=== PATIENT | male | born 1970 ===

== ENCOUNTER 2017-04-08 12:11 | Observation (INO) | payer BC ==
--- NOTE | 2017-04-08 12:26 | C.PDOC ---
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 Patient states the symptoms started while being a passenger in a car, states '"like things moving". Patient reports of associated nausea and slurred speech. States the slurred speech has now resolved "but still feel dizzy". Patient reports the symptoms worsen with movement. Patient states "Im under a lot of stress". Denies recent URI, allergies, chest pain, SOB or vomiting. 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 SUDDEN ONSET WHILE PASSENGER IN CAR. "LIKE THINGS MOVING" +ASSOC NAUSEA. SLURRED SPEECH. SLURRED SPEECH NOW RESOLVED "BUT STILL FEEL DIZZY". SX WORSE W MOVEMENT. DENIES RECENT URI, ALLERGIES. "IM UNDER ALOT OF STRESS". NO CP, SOB. EXAM MILD DIST NONTOXIC HEENT NO NYSTAGMUS NEURO SEE NIH REMAINDER NEG Time Seen by Provider: 04/08/17 12:19 History Per: Patient History/Exam Limitations: no limitations Onset/Duration Of Symptoms: Sudden Onset Past Medical History Reviewed: Historical Data, Nursing Documentation, Vital Signs Vital Signs: Last Vital Signs Temp 97.3 F L 04/08/17 12:24 Pulse 108 H 04/08/17 12:24 Resp 24 04/08/17 12:24 BP 129/80 04/08/17 12:24 Pulse Ox 98 04/08/17 12:24 Family History: States: No Known Family Hx Review Of Systems Except As Marked, All Systems Reviewed And Found Negative. Constitutional: Positive for: Other ((+) Slurred Speech) Cardiovascular: Negative for: Chest Pain Respiratory: Negative for: Shortness of Breath Gastrointestinal: Positive for: Nausea Neurological: Positive for: Dizziness Physical Exam - Physical Exam Appears: Non-toxic, In Acute Distress (Mild) Skin: Warm, Dry, No Rash Head: Atraumatic, Normacephalic Eye(s): bilateral: Normal Inspection, PERRL, EOMI, Other (No nystagmus) Oral Mucosa: Moist Neck: Normal, Normal ROM, Supple Chest: Symmetrical, No Tenderness Cardiovascular: Rhythm Regular, No Murmur Respiratory: Normal Breath Sounds, No Rales, No Rhonchi, No Wheezing Extremity: Normal ROM, No Swelling Neurological/Psych: Other (See NIH.) ED Course And Treatment - Laboratory Results Result Diagrams: 04/08/17 12:51 04/08/17 12:51 ECG: Interpreted By Me ECG Rhythm: Sinus Tachycardia, R BBB ECG Interpretation: Abnormal Rate From EC - CT Scan/US CT - Head Other Rad Studies (CT/US): Read By Radiologist, Radiology Report Reviewed CT/US Interpretation: PROCEDURE: CT HEAD WITHOUT CONTRAST. HISTORY: Code Stroke. COMPARISON: None available. TECHNIQUE: Axial computed tomography images were obtained through the head/brain without intravenous contrast. Radiation dose: Total exam DLP = 930.75 mGy-cm. This CT exam was performed using one or more of the following dose reduction techniques: Automated exposure control, adjustment of the mA and/or kV according to patient size, and/ or use of iterative reconstruction technique. FINDINGS: HEMORRHAGE: No intracranial hemorrhage. BRAIN: No mass effect or edema. No atrophy or chronic microvascular ischemic changes. VENTRICLES: Unremarkable. No hydrocephalus. CALVARIUM: Unremarkable. PARANASAL SINUSES: Unremarkable as visualized. No significant inflammatory changes. MASTOID AIR CELLS: Unremarkable as visualized. No inflammatory changes. OTHER FINDINGS: None. IMPRESSION: No evidence of acute intracranial hemorrhage intracranial collection territorial infarct mass effect or midline shift. NIHSS Stroke Scale - Date/Time Evaluation Performed Date Performed: 04/08/17 Time Performed: 12:24 When Was NIHSS Performed: Baseline - How Severe is the Stoke Level of Consciousness: 0=Alert LOC to Questions: 0=Both comments correct LOC to commands: 0=Obeys both correctly Best Gaze: 0=Normal Visual: 0=No visual loss Facial: 0=Normal Motor Arm - Left: 0=No drift Motor Arm - Right: 0=No drift Motor Leg - Left: 0=No drift Motor Leg - Right: 0=No drift Limb Ataxia: 0=Absent Sensory: 0=Normal Best Language: 0=No aphasia Dysarthia: 0=Normal articulation Extinction & Inattention (Neglect): 0=Normal, no object Score: 0 Severity Of Stroke: 0= No Stroke NIHSS Stroke Scale 2 - Date/Time Evaluation Performed Date Performed: 04/08/17 Time Performed: 13:05 When Was NIHSS Performed: Code Stroke Re-evaluation - How Severe is the Stroke Level of Consciousness: 0=Alert LOC to Questions: 0=Both comments correct LOC to commands: 0=Obeys both correctly Best Gaze: 0=Normal Visual: 0=No visual loss Facial: 0=Normal Motor Arm - Left: 0=No drift Motor Arm - Right: 0=No drift Motor Leg - Left: 0=No drift Motor Leg - Right: 0=No drift Limb Ataxia: 0=Absent Sensory: 0=Normal Best Language: 0=No aphasia Dysarthia: 0=Normal articulation Extinction & Inattention (Neglect): 0=Normal, no object Score: 0 Progress - Re-Evaluation Re-evaluation Note: 04/08/17 12:23 CODE STROKE ACTIVATED 04/08/17 14:03 APPEARS COMFORTABLE NAD. NEURO UN[facility] PRIOR. D/W DR Jocelyn GILLESPIE MED CHIEF SCIENCE OFFICER WILL ADMIT. CONSULT DR ABREU - Data Reviewed Data Reviewed: Lab, Diagnostic imaging, EKG, Old records - Critical Care Citical Care: Excluding Proc Time Critical Care Time: 120 minutes rTPA Inclusion/Exclusion - Refusal of Treatment Patient Refused Treatment: No - Inclusion Criteria for Altepase Patient is 18 years or Older: Yes The Clinical Diagnosis of Ischemic Stroke That is Causing a Potentially Disabling Neurological Deficit: No Time of Onset is Well Established to be Less Than 270 Minute Before Treatment Would Begin: Yes Risk/Benefit Discussed With Patient/Family Member Present: Yes - Exclusion Criteria for Altepase Uncontrolled Hypertension at Time of Treatment (Systolic BP above 185 or Diastolic BP above 110 mmHg): No Active Internal Bleeding: No Known Bleeding Diathesis Including but Not Limited to: Platelets Below 100,000/ mm,PTT Above 40 sec After Heparin Use, Current Use of Oral Anitcoagulant With INR Greater Than 1.7 or PT Greater Than 15 secs: No Evidence of an Intracranial Hemorrhage: No Evidence of Major Acute Infarct With Signs Greater Than 1/3 MCA Territory: No Suspicion of Subarachnoid Hemorrhage on Pretreatment Evaluation Even if CT Head Negative For Hemorrhage: No - Warning to TPA With Conditions Following Conditions Weighed Against Anticipated Benefit: Yes Condition: Stroke Serevity Too Mild, Rapid Improvement Medical Decision Making Medical Decision Making: PLAN: * CT - Head * CXR * EKG * Troponin * CBC * CMP Disposition Counseled Patient/Family Regarding: Studies Performed, Diagnosis - Disposition Disposition: HOSPITALIZED Disposition Time: 14:06 Condition: STABLE - POA Present On Arrival: None - Clinical Impression Clinical Impression: TIA (transient ischemic attack) - Scribe Statement The provider has reviewed the documentation as recorded by the Mela Mclean Provider Attestation: All medical record entries made by the Scribe were at my direction and personally dictated by me. I have reviewed the chart and agree that the record accurately reflects my personal performance of the history, physical exam, medical decision making, and the department course for this patient. I have also personally directed, reviewed, and agree with the discharge instructions and disposition. Decision To Admit - Pt Status Changed To: Hospital Disposition Of: Observation - . Bed Request Type: Telemetry Admitting Physician: Carissa Gillespie Patient Diagnosis: TIA (transient ischemic attack)
--- NOTE | 2017-04-08 12:45 | CT ---
PROCEDURE: CT HEAD WITHOUT CONTRAST. HISTORY: Code Stroke COMPARISON: None available. TECHNIQUE: Axial computed tomography images were obtained through the head/brain without intravenous contrast. Radiation dose: Total exam DLP = 930.75 mGy-cm. This CT exam was performed using one or more of the following dose reduction techniques: Automated exposure control, adjustment of the mA and/or kV according to patient size, and/or use of iterative reconstruction technique. FINDINGS: HEMORRHAGE: No intracranial hemorrhage. BRAIN: No mass effect or edema. No atrophy or chronic microvascular ischemic changes. VENTRICLES: Unremarkable. No hydrocephalus. CALVARIUM: Unremarkable. PARANASAL SINUSES: Unremarkable as visualized. No significant inflammatory changes. MASTOID AIR CELLS: Unremarkable as visualized. No inflammatory changes. OTHER FINDINGS: None. IMPRESSION: No evidence of acute intracranial hemorrhage intracranial collection territorial infarct mass effect or midline shift.
[2017-04-08 12:58] LABS: BASO # 0.1 K/uL (0.0-0.2); BASO % 1.2 % (0.0-2.0); EOS # 0.1 K/uL (0.0-0.7); EOS % 0.7 % (0.0-4.0); HEMATOCRIT 43.1 % (35.0-51.0); LYMPH # 2.9 K/uL (1.0-4.3); LYMPH % 25.3 % (20.0-40.0); MEAN CELL VOLUME 84.8 fL (80.0-94.0); MEAN CORPUSCULAR HEMOGLOBIN 29.3 pg (27.0-31.0); MEAN CORPUSCULAR HGB CONC 34.6 g/dL (33.0-37.0); MEAN PLATELET VOLUME 9.5 fL (7.2-11.7); MONO # 0.8 K/uL (0.0-0.8); MONO % 7.1 % (0.0-10.0); NRBC % 0.1 % (0.0-2.0); RED CELL DISTRIBUTION WIDTH 12.6 % (11.5-14.5); WHITE BLOOD COUNT 11.3 K/uL (4.8-10.8)
[2017-04-08 13:07] LABS: INR 1.1
[2017-04-08 13:55] LABS: CHLORIDE 103 mmol/L (98-107)
[2017-04-08 13:56] LABS: POTASSIUM 3.3 mmol/L (3.6-5.2); SODIUM 137 mmol/L (132-148)
[2017-04-08 13:57] LABS: CHOLESTEROL 170 mg/dL (0-199)
[2017-04-08 13:58] LABS: ALKALINE PHOSPHATASE 69 U/L (38-126); AST/SGOT 24 U/L (17-59); BLOOD UREA NITROGEN 13 mg/dL (9-20); CARBON DIOXIDE 19 mmol/L (22-30); GFR AFRICAN-AMERICAN > 60; GLUCOSE,RANDOM 111 mg/dL (75-110); TOTAL PROTEIN 8.6 g/dL (6.3-8.3)
[2017-04-08 13:59] LABS: ALT/SGPT 25 U/L (21-72)
--- NOTE | 2017-04-08 14:31 | RAD ---
HISTORY: code stroke COMPARISON: No prior. FINDINGS: LUNGS: No active pulmonary disease. PLEURA: No significant pleural effusion identified, no pneumothorax apparent. CARDIOVASCULAR: Normal. OSSEOUS STRUCTURES: No significant abnormalities. VISUALIZED UPPER ABDOMEN: Normal. OTHER FINDINGS: None. IMPRESSION: No active disease.
--- NOTE | 2017-04-08 14:59 | CP.PCM.HP ---
Past Patient History - Past Social History Smoking Status: Never Smoked - PULMONARY Hx Asthma: Yes - PSYCHIATRIC Hx Substance Use: No - SURGICAL HISTORY Other/Comment: TUMOR REMOVAL ON BACK. HAND SX - ANESTHESIA Hx Anesthesia: Yes Hx Anesthesia Reactions: No Meds Allergies/Adverse Reactions: Allergies Allergy/AdvReac Type Severity Reaction Status Date / Time iodine Allergy Verified 04/08/17 12:25 shellfish derived Allergy Verified 04/08/17 12:25 Physical Exam - Constitutional Appears: Well - Head Exam Head Exam: ATRAUMATIC, NORMAL INSPECTION, NORMOCEPHALIC - Eye Exam Eye Exam: EOMI, Normal appearance, PERRL Pupil Exam: NORMAL ACCOMODATION, PERRL - ENT Exam ENT Exam: Mucous Membranes Moist, Normal Exam - Neck Exam Neck exam: Positive for: Normal Inspection - Respiratory Exam Respiratory Exam: Decreased Breath Sounds - Cardiovascular Exam Cardiovascular Exam: REGULAR RHYTHM, +S1, +S2 - GI/Abdominal Exam GI & Abdominal Exam: Diminished Bowel Sounds, Soft - Rectal Exam Rectal Exam: Deferred Results - Vital Signs Recent Vital Signs: Last Vital Signs Temp 97.3 F L 04/08/17 12:24 Pulse 108 H 04/08/17 12:24 Resp 24 04/08/17 12:24 BP 129/80 04/08/17 12:24 Pulse Ox 98 04/08/17 12:24 - Labs Result Diagrams: 04/08/17 12:51 04/08/17 12:51 Labs: Laboratory Results - last 24 hr 04/08/17 04/08/17 04/08/17 12:17 12:51 12:51 WBC 11.3 H RBC 5.09 Hgb 14.9 Hct 43.1 MCV 84.8 MCH 29.3 MCHC 34.6 RDW 12.6 Plt Count 230 MPV 9.5 Neut % (Auto) 65.7 Lymph % (Auto) 25.3 [place] % (Auto) 7.1 Eos % (Auto) 0.7 Baso % (Auto) 1.2 Neut # 7.4 H Lymph # 2.9 [place] # 0.8 Eos # 0.1 Baso # 0.1 PT 11.8 INR 1.1 APTT 29 Sodium Potassium Chloride Carbon Dioxide Anion Gap BUN Creatinine Est GFR ( Amer) Est GFR (Non-Af Amer) POC Glucose (mg/dL) 110 Random Glucose Calcium Total Bilirubin AST ALT Alkaline Phosphatase Troponin I Total Protein Albumin Globulin Albumin/Globulin Ratio Triglycerides Cholesterol LDL Cholesterol Direct HDL Cholesterol Blood Type Antibody Screen 04/08/17 04/08/17 12:51 12:51 WBC RBC Hgb Hct MCV MCH MCHC RDW Plt Count MPV Neut % (Auto) Lymph % (Auto) [place] % (Auto) Eos % (Auto) Baso % (Auto) Neut # Lymph # [place] # Eos # Baso # PT INR APTT Sodium 137 Potassium 3.3 L Chloride 103 Carbon Dioxide 19 L Anion Gap 18 BUN 13 Creatinine 0.8 Est GFR ( Amer) > 60 Est GFR (Non-Af Amer) > 60 POC Glucose (mg/dL) Random Glucose 111 H Calcium 10.0 Total Bilirubin 1.0 AST 24 ALT 25 Alkaline Phosphatase 69 Troponin I < 0.0120 Total Protein 8.6 H Albumin 4.4 Globulin 4.2 H Albumin/Globulin Ratio 1.0 Triglycerides 131 Cholesterol 170 LDL Cholesterol Direct 118 HDL Cholesterol 40 Blood Type O POSITIVE Antibody Screen Negative
[2017-04-08] MEDS ORDERED: Potassium Chloride 10 mEq ER Tab PO STA (15:06)
[2017-04-08] MEDS ORDERED: Potassium Chloride 20 mEq ER Tab PO ONE (15:37)
[2017-04-08] MEDS ORDERED: Enoxaparin 40 mg Syringe ONE (15:37)
[2017-04-08] MEDS: Enoxaparin 40 mg Syringe SC SCH (15:39)
[2017-04-08] MEDS: Dextrose 5%/0.45% NS 1,000 ML IV SCH (20:02)
--- NOTE | 2017-04-08 22:08 | CON ---
DATE: REASON FOR CONSULTATION: Abnormal EKG as well as dizziness. HISTORY OF PRESENT ILLNESS: The patient is a 46-year-old male who has history of bronchial asthma, otherwise healthy individual, who is going through tremendous stress according to him, both at work and at home. The patient states that he has 29-year-old daughter who is a heroin addict and is undergoing rehabilitation, has escaped from the house last night. The patient while working in [facility] and being driven by his coworker home and after going through 2 hours of traffic in [place] coming from [place], before arriving to the [facility],he did feel numbness in both hands and he was unable to speak to his driving coworker to tell him that he needs to go to the hospital. He also felt that he was unable to text back his . The patient denies fainting when his friend drove him to [facility]. the patient felt that he felt had a unsteady gait as he walked from the car to the emergency room. Following that the patient did experience full recovery. The patient did use an inhale while he was in the car as he felt that he was experiencing chest tightness, but denies any wheezing. The patient uses his inhaler pretty infrequently,but he carries it with him. The patient has no other medications today and denies any other symptoms of nausea, vomiting, or diarrhea. SOCIAL HISTORY: The patient is an occasional smoker. He smokes cigar and at times cigarettes, but on regular basis. He is . He has a second marriage. He is from his first . MEDICATIONS: Aspirin 325 mg once a day, Crestor 10 mg once a day, Lovenox 40 mg once a day, at home the patient was only using an inhaler very infrequently. . PHYSICAL EXAMINATION GENERAL: The patient is a middle aged male who does not appear to be in any distress. VITAL SIGNS: Blood pressure 112/58, heart rate 111, temperature 97.9, respirations 16. HEENT: Normocephalic. NECK: No JVD. CHEST: Clear. HEART: S1 and S2, regular. ABDOMEN: Soft. EXTREMITIES: No edema. LABORATORY DATA: PT/INR and PTT are within normal limits. SMA-7; sodium 137, potassium 2.3, chloride 103, CO2 of 19, glucose 111, BUN 15, and creatinine 0.8. One set of troponin is negative. Lipid profile is within normal limits. CBC, WBC 11.3, hemoglobin 14.9, hematocrit 43.1, and platelet count 1230. EKG revealed sinus tachycardia including right bundle-branch block. Head CT scan revealed no evidence of intracranial hemorrhage or territorial mass or infarct or midline shift. ASSESSMENT: 1. Rule out transient ischemic attack. 2. Anxiety and hypersensitivity may explain the patient's presenting symptoms. 3. History of bronchial asthma. The patient is currently not in bronchospasm. RECOMMENDATIONS: Continue current aspirin 325 mg once a day, Crestor 10 mg once a day, and Lovenox 40 mg once a day. The patient will be evaluated by neurologist. In the meantime, I will request an echocardiogram and repeat 12-lead EKG in a.m. Eliecer Lynch MD
[2017-04-09] MEDS: Enoxaparin 40 mg Syringe SC SCH (09:09)
[2017-04-09] MEDS: Dextrose 5%/0.45% NS 1,000 ML IV SCH (09:48)
--- NOTE | 2017-04-09 11:26 | CP.PCM.PN ---
Subjective - Date & Time of Evaluation Date of Evaluation: 04/09/17 Time of Evaluation: 12:00 - Subjective Subjective: clinically same Objective - Vital Signs/Intake and Output Vital Signs (last 24 hours): Temp Pulse Resp BP Pulse Ox 97.7 F 88 20 109/72 97 04/09/17 07:00 04/09/17 07:00 04/09/17 07:00 04/09/17 07:00 04/09/17 07:00 Intake and Output: 04/09/17 04/09/17 06:59 18:59 Intake Total 442 Balance 442 - Medications Medications: Current Medications Alprazolam (Xanax) 0.25 mg PO Q12H PRN PRN Reason: Anxiety Stop: 04/15/17 22:01 Last Admin: 04/08/17 22:19 Dose: 0.25 mg Aspirin (Aspirin) 325 mg PO DAILY [facility] Last Admin: 04/09/17 09:09 Dose: 325 mg Enoxaparin Sodium (Lovenox) 40 mg SC DAILY [facility] Last Admin: 04/09/17 09:09 Dose: 40 mg Dextrose/Sodium Chloride (Dextrose 5%/0.45% Ns 1000 Ml) 1,000 mls @ 60 mls/hr IV .[id number] [facility] Last Admin: 04/09/17 09:48 Dose: 60 mls/hr Pneumococcal Polyvalent Vaccine (Pneumovax 23 Vaccine) 0.5 ml IM .ONCE ONE Stop: 04/11/17 10:01 Rosuvastatin Calcium (Crestor) 10 mg PO [facility] Tobramycin/Dexamethasone (Tobradex Opht Susp) 1 ml OS TID [facility] - Labs Labs: 04/08/17 12:51 04/08/17 12:51 PT 11.8 SECONDS (9.7-12.2) 04/08/17 12:51 INR 1.1 04/08/17 12:51 APTT 29 SECONDS (21-34) 04/08/17 12:51 - Constitutional Appears: Well - Head Exam Head Exam: ATRAUMATIC, NORMAL INSPECTION, NORMOCEPHALIC - Eye Exam Eye Exam: EOMI, Normal appearance, PERRL Pupil Exam: NORMAL ACCOMODATION, PERRL - ENT Exam ENT Exam: Mucous Membranes Moist, Normal Exam - Neck Exam Neck Exam: Full ROM, Normal Inspection. absent: Lymphadenopathy - Respiratory Exam Respiratory Exam: Decreased Breath Sounds - Cardiovascular Exam Cardiovascular Exam: REGULAR RHYTHM, +S1, +S2 - GI/Abdominal Exam GI & Abdominal Exam: Soft, Diminished Bowel Sounds - Rectal Exam Rectal Exam: Deferred
[2017-04-09] MEDS: Tobramycin/Dexamethasone (Tobradex) Opth Sol (2.5 ml) OS SCH ×2 (12:16→17:51)
--- NOTE | 2017-04-09 18:20 | CON ---
DATE: REFERRING PHYSICIAN: Shamika Elizabeth MD REASON FOR CONSULTATION: Questionable TIA. HISTORY: The patient is a 46-year-old right-handed gentleman with no significant past medical history of hyperlipidemia. The patient was admitted because of an episode of near syncope and dizziness associated with numbness and tingling although, upper extremities and right-sided chest tightness, lasted 20 to 30 minutes and resolved. The patient states that he would panic, he thought that he had a stroke and while he was as a passenger in the car. The patient states that I turn my head to the right and immediately I felt everything is spinning. When he was brought to the emergency room, when he get off of the car as a passenger, he felt that he is going to pass out and his legs giving away. The patient denies such episode in the past. In emergency room, the patient's blood pressure was 129/80, pulse 108, respirations 24, temperature 97.3. The patient denies loss of consciousness in the past, but the patient did state that when he tried to bend some times and mixing picker tender objects from the floor, when he stands up, he feels dizzy, lightheadedness. No vertigo. The patient denies associated perioral numbness, or tongue numbness, double vision, blurred vision, dysarthria, dysphagia. The patient was nauseous during the episode, but no vomiting. PAST MEDICAL HISTORY: Hyperlipidemia. MEDICATIONS: Rosuvastatin, calcium, enoxaparin, tobramycin, alprazolam, aspirin. PHYSICAL EXAMINATION: VITAL SIGNS: Her blood pressure 109/72, pulse 84, respirations 20, temperature 97.7. MENTAL STATUS: The patient is alert, awake, and oriented x3. Normal naming, repetition, and comprehension. No nausea. No apraxia. No right to left confusion. Cranial nerves; pupils are symmetric, 3 mm bilaterally. No nystagmus. No field defect. Tongue is midline. Gag is intact. Accessory nerve is intact. V1 to V3 intact. No ptosis. No double vision. MOTOR: Normal tone in upper and lower extremities. No pronator drift. No tremor action, rest, or postural. Fine finger movement, finger tapping, alternative movement intact. Upper extremity, deltoid 5/5, elbow 5/5, with pot liner 5/5. Lower extremities, bilateral hip flexion 5/5, knee flexion and extension 5/5, plantar extension 5/5. Deep tendon reflexes 1-2 in upper and lower extremities. Plantar flexion on both sides. SENSORY: Pinprick, light touch and position intact. Coordination, [id number] intact, [id number] intact, I have applied Apley maneuver and ____ positioning, it was negative. A CAT scan of the brain did not reveal significant findings. LABORATORY DATA: White blood cells 11.3, red blood cells 5, hemoglobin 14.9, hematocrit 43.1, platelets 230. Sodium 137, potassium 3.3, chloride 103, CO2 of 19, anion gap 18, BUN 13, creatinine 0.8, glucose 111. IMPRESSION: Sudden episode of dizziness, vertigo, near syncope, associated with nausea, dizziness, and numbness, tingling of the extremities, possibility of cerebral hypoperfusion secondary to hypotension, arrhythmia, vasovagal and possibility of positional vertigo cannot be excluded and that triggered anxiety and panic attack and caused the patient's numbness, tingling of the extremities. The patient will need MRI of the brain and carotid Doppler to rule out structural lesion and carotid Doppler to rule out carotid stenosis. The patient is already on aspirin. Apley maneuver was negative. Possibility of benign positional vertigo might be less likely. Continue current treatment. Alprazolam and if needed meclizine. Currently, the patient has no vertigo and no symptoms. Thank you for the consultation and Dr. Joyce will follow up with the patient tomorrow. Thank you for the referral. Donell Shearer MD
--- NOTE | 2017-04-09 18:53 | PN ---
DATE: SUBJECTIVE: The patient has no recurrence of yesterday's symptoms including arm and hand numbness, hand weakness, or speech difficulty. The patient denies any shortness of breath. PHYSICAL EXAMINATION VITAL SIGNS: Blood pressure 114/72, heart rate 85, temperature 98, respiration 20. HEENT: Normocephalic. NECK: No JVD. CHEST: Clear. HEART: S1 and S2 regular. ABDOMEN: Soft. EXTREMITIES: No edema. ASSESSMENT: 1. Rule out transient ischemic attack. 2. Anxiety disorder. 3. History of bronchial asthma. 4. Mild hypokalemia on admission. RECOMMENDATION: Continue aspirin 325 mg once a day, Crestor 10 mg once a day, Lovenox 40 mg subcutaneous once a day, and Xanax 0.25 mg p.o. q.12 hours. The patient is scheduled for brain MRI tomorrow as well as an echocardiogram. Eliecer Lynch MD
[2017-04-09] MEDS ORDERED: Potassium Chloride 20 mEq ER Tab PO STA (19:03)
[2017-04-10] MEDS: Dextrose 5%/0.45% NS 1,000 ML IV SCH ×2 (04:35→06:38)
--- NOTE | 2017-04-10 07:56 | PN ---
LOCATION: The patient is in room #653, bed B. 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 SUBJECTIVE: The patient was seen by Dr. Shearer over the weekend. Requested workup on progress for his possible vestibulopathy versus central cords. PHYSICAL EXAMINATION: VITAL SIGNS: Blood pressure 104/67, mean arterial pressure of 79, respiratory rate 18, temperature 98.1, pulse rate 78 and regular. The patient denies any complaints. The patient did have dizziness associating with some nausea sensation, which lasting for about 25 minutes. The patient has also been under a lot of stress with sleep deprivation from family as well as job related. The patient's examination is not showing any focal anomalies or long tract signs. However, his deep tendon reflexes are trace and plantars are downgoing. RECOMMENDATIONS: Continue the present management and I agreed with all workup being requested by Dr. Donell Shearer. If medically stable for next 24 hours following workup, the patient can be discharged and should have requested to have a followup with me as an outpatient. Geovani Joyce MD
[2017-04-10 09:07] LABS: THYROID STIMULATING HORMONE 2.17 mIU/L (0.46-4.68)
[2017-04-10] MEDS: Tobramycin/Dexamethasone (Tobradex) Opth Sol (2.5 ml) OS SCH ×3 (09:30→18:10)
[2017-04-10] MEDS: Enoxaparin 40 mg Syringe SC SCH (09:30)
--- NOTE | 2017-04-10 13:04 | MRI ---
PROCEDURE: MRI BRAIN WITHOUT CONTRAST HISTORY: stroke Vs mass COMPARISON: Comparison is made to the previous CT dated 04/08/2017 TECHNIQUE: Multiplanar, multisequence MR images of the brain were obtained without intravenous contrast enhancement. FINDINGS: HEMORRHAGE: None DWI: No evidence of an acute or early subacute infarction. BRAIN PARENCHYMA: No mass effect or edema. No atrophy or chronic microvascular ischemic changes. VENTRICLES: Unremarkable. No hydrocephalus. CRANIUM: Unremarkable. ORBITS: Grossly unremarkable. PARANASAL SINUSES/MASTOIDS: Mild sinuses mucosal thickening. VASCULAR SYSTEM: Skull base flow voids intact. OTHER FINDINGS: None. IMPRESSION: No evidence of acute infarction or acute pathology in the brain. No evidence of mass lesion mass effect or midline shift.
--- NOTE | 2017-04-10 16:06 | CP.PCM.PN ---
Subjective - Date & Time of Evaluation Date of Evaluation: 04/10/17 Time of Evaluation: 13:00 - Subjective Subjective: clinically samr Objective - Vital Signs/Intake and Output Vital Signs (last 24 hours): Temp Pulse Resp BP Pulse Ox 98.0 F 80 18 120/76 97 04/10/17 07:35 04/10/17 07:35 04/10/17 07:35 04/10/17 07:35 04/10/17 07:35 - Medications Medications: Current Medications Alprazolam (Xanax) 0.25 mg PO Q12H PRN PRN Reason: Anxiety Stop: 04/15/17 22:01 Last Admin: 04/09/17 21:02 Dose: 0.25 mg Aspirin (Aspirin) 325 mg PO DAILY [facility] Last Admin: 04/10/17 09:30 Dose: 325 mg Enoxaparin Sodium (Lovenox) 40 mg SC DAILY [facility] Last Admin: 04/10/17 09:30 Dose: 40 mg Pneumococcal Polyvalent Vaccine (Pneumovax 23 Vaccine) 0.5 ml IM .ONCE ONE Stop: 04/11/17 10:01 Rosuvastatin Calcium (Crestor) 10 mg PO HS [facility] Last Admin: 04/09/17 21:02 Dose: 10 mg Tobramycin/Dexamethasone (Tobradex Opht Susp) 1 ml OS TID [facility] Last Admin: 04/10/17 14:41 Dose: 1 drop - Labs Labs: 04/08/17 12:51 04/08/17 12:51 PT 11.8 SECONDS (9.7-12.2) 04/08/17 12:51 INR 1.1 04/08/17 12:51 APTT 29 SECONDS (21-34) 04/08/17 12:51 - Constitutional Appears: Well - Head Exam Head Exam: ATRAUMATIC, NORMAL INSPECTION, NORMOCEPHALIC - Eye Exam Eye Exam: EOMI, Normal appearance, PERRL Pupil Exam: NORMAL ACCOMODATION, PERRL - ENT Exam ENT Exam: Mucous Membranes Moist, Normal Exam - Neck Exam Neck Exam: Full ROM, Normal Inspection. absent: Lymphadenopathy - Respiratory Exam Respiratory Exam: Decreased Breath Sounds - Cardiovascular Exam Cardiovascular Exam: REGULAR RHYTHM, +S1, +S2 - GI/Abdominal Exam GI & Abdominal Exam: Soft, Diminished Bowel Sounds - Rectal Exam Rectal Exam: Deferred
--- NOTE | 2017-04-10 16:12 | PN ---
SUBJECTIVE: The patient denies any dizziness, speech difficulty, hand numbness or headache. No reported arrhythmia. PHYSICAL EXAMINATION VITAL SIGNS: Blood pressure 120/76, heart rate 80, temperature 98, respiration 18. HEENT: Normocephalic. CHEST: Clear. HEART: S1 and S2 regular. ABDOMEN: Soft. EXTREMITIES: No edema. LABORATORY DATA: Urine drug screen is negative. Brain MRI, no evidence of acute infarction or acute pathology in the brain. No evidence of mass effect or midline shift. ASSESSMENT: 1. Questionable transient ischemic attack. 2. History of bronchial asthma. 3. Hypokalemia on admission. RECOMMENDATION: Continue aspirin 325 mg once a day, Crestor 10 mg once a day, subcutaneous Lovenox 40 mg once a day. I will review the echocardiograph study that was performed today. Eliecer Lynch MD
[2017-04-11 01:15] VITALS: O2SAT 96
[2017-04-11 08:12] VITALS: BP 132/77; PULSE 79; RESP 18; TEMP 97.4
[2017-04-11] MEDS: Enoxaparin 40 mg Syringe SC SCH (09:51)
[2017-04-11] MEDS: Tobramycin/Dexamethasone (Tobradex) Opth Sol (2.5 ml) OS SCH ×2 (09:52→13:16)
[2017-04-11] MEDS ORDERED: Pneumococcal 23-Valent Vaccine IM ONE (10:00)
[2017-04-11] MEDS ORDERED: Potassium Chloride 20 mEq ER Tab PO SCH (10:00)
[2017-04-11] MEDS ORDERED: Influenza Vaccine 60 mcg/0.5 mL SYR (4YR UP) IM ONE (10:00)
--- NOTE | 2017-04-11 13:55 | CP.PCM.PN ---
Subjective - Date & Time of Evaluation Date of Evaluation: 04/11/17 Time of Evaluation: 13:54 - Subjective Subjective: PT CLEARED BY NEURO FOR D/C TODAY AND F/U OP. DISCUSSED WITH DR. MARKS AND HE ALSO CLEARS PT FOR D/C TODAY. PT SEE BY DR. Jocelyn GILLESPIE DURING ROUNDS AND CLEARED FOR D/C HOME TODAY.. WILL CONTINUE ASA 81 MG PO QD, CRESTOR 2.5 MG PO HS, AND EYE GTTS (FOR 3 DAYS). WILL F/U WITH NEURO, CARD AND PMD IN OFFICES WITHIN 1-2 WEEKS. NO FURTHER ORDERS. Objective - Vital Signs/Intake and Output Vital Signs (last 24 hours): Temp Pulse Resp BP Pulse Ox 97.4 F L 79 18 132/77 96 04/11/17 07:35 04/11/17 07:35 04/11/17 07:35 04/11/17 07:35 04/11/17 07:35 - Medications Medications: Current Medications Alprazolam (Xanax) 0.25 mg PO Q12H PRN PRN Reason: Anxiety Stop: 04/15/17 22:01 Last Admin: 04/10/17 21:33 Dose: 0.25 mg Aspirin (Aspirin) 325 mg PO DAILY [facility] Last Admin: 04/11/17 09:50 Dose: 325 mg Enoxaparin Sodium (Lovenox) 40 mg SC DAILY [facility] Last Admin: 04/11/17 09:51 Dose: 40 mg Potassium Chloride (K-Dur 20 Meq Er Tab) 20 meq PO DAILY [facility] Last Admin: 04/11/17 09:51 Dose: 20 meq Rosuvastatin Calcium (Crestor) 10 mg PO HS [facility] Last Admin: 04/10/17 21:30 Dose: 10 mg Tobramycin/Dexamethasone (Tobradex Opht Susp) 1 ml OS TID [facility] Last Admin: 04/11/17 13:16 Dose: 1 drop - Labs Labs: 04/08/17 12:51 04/08/17 12:51 PT 11.8 SECONDS (9.7-12.2) 04/08/17 12:51 INR 1.1 04/08/17 12:51 APTT 29 SECONDS (21-34) 04/08/17 12:51
--- NOTE | 2017-04-11 14:22 | VASCLAB ---
PROCEDURE: HISTORY: Transient Ischemic Attack COMPARISON: None available. TECHNIQUE: Grayscale and duplex Doppler evaluation of the cervical carotid and vertebral arteries were performed. The common carotid, carotid bifurcations and cervical Internal Carotid Artery (ICA) and proximal External Carotid Artery (ECA) were evaluated. The vertebral arteries were evaluated for gross patency and flow direction. Report prepared by YUMI Jaquez FINDINGS: RIGHT CAROTID ARTERIES: 1. Common Carotid Artery: No significant focal plaque formation of the right common carotid artery. Maximum Peak Systolic velocity: 100 cm/sec: End-diastolic velocity 19 cm/sec. 2. Carotid Bifurcation: plaque formation. Maximum Peak Systolic velocity: 68 cm/sec: End-diastolic velocity 14 cm/sec. 3. Internal Carotid Artery: Plaque description: 3.1. Proximal Segment: Peak systolic velocity 79 cm/sec: End-diastolic velocity 30 cm/sec - % stenosis 0-15% 3.2. Middle Segment: Peak systolic velocity 69 cm/sec: End-diastolic velocity 36 cm/sec - % stenosis 0-15% 3.3. Distal Segment: Peak systolic velocity 45 cm/sec: End-diastolic velocity 18 cm/sec - % stenosis 0-15% 4. External Carotid Artery: No significant focal plaque formation. Peak systolic velocity 82 cm/sec 5. ICA/CCA Ratio: 0.9 LEFT CAROTID ARTERIES: 1. Common Carotid Artery: No significant focal plaque formation of the left common carotid artery. Maximum Peak Systolic velocity: 103 cm/sec: End-diastolic velocity 19 cm/sec. 2. Carotid Bifurcation: plaque formation. Maximum Peak Systolic velocity: 69 cm/sec: End-diastolic velocity 17 cm/sec. 3. Internal Carotid Artery: Plaque description: 3.1. Proximal Segment: Peak systolic velocity 67 cm/sec: End-diastolic velocity 27 cm/sec - % stenosis 0-15% 3.2. Middle Segment: Peak systolic velocity 81 cm/sec: End-diastolic velocity 35 cm/sec - % stenosis 0-15% 3.3. Distal Segment: Peak systolic velocity 66 cm/sec: End-diastolic velocity 27 cm/sec - % stenosis 0-15% 4. External Carotid Artery: No significant focal plaque formation. Peak systolic velocity 116 cm/sec 5. ICA/CCA Ratio: 1.1 VERTEBRAL ARTERIES: 1. Right Vertebral Artery: The right vertebral artery flow direction is antegrade. 2. Left Vertebral Artery: The left vertebral artery flow direction is antegrade. OTHER FINDINGS: 1. Right Brachial Blood pressure: 130 mmHg. 2. Left Brachial Blood pressure: 140 mmHg. IMPRESSION: RIGHT: Duplex scan does not suggest hemodynamically significant stenosis of the right extracranial carotid arteries. LEFT: Duplex scan does not suggest hemodynamically significant stenosis of the left extracranial carotid arteries.
--- NOTE | 2017-04-11 16:49 | PN ---
SUBJECTIVE: The patient denies any dizziness, arm numbness or arm weakness. PHYSICAL EXAMINATION: VITAL SIGNS: Blood pressure 132/77, heart rate 79, temperature 97.4 and respiration 18. HEENT: Normocephalic. NECK: No JVD. CHEST: Clear. HEART: S1 and S2 regular. ABDOMEN: Soft. EXTREMITIES: No edema. I did review the echocardiograph study, revealed normal left ventricular systolic function and normal right ventricular systolic function. Carotid Doppler was negative for any significant disease. ASSESSMENT: 1. Unlikely transient ischemic attack. 2. Consider reaction to anxiety and hyperventilation. 3. History of bronchial asthma. RECOMMENDATION: Continue current aspirin and Crestor. The case was discussed with the primary physician as well as the [employer]. No further cardiac workup is indicated at this time. Eliecer Lynch MD
--- NOTE | 2017-04-11 22:19 | CARD ---
APPROVED REPORT EXAM: Two-dimensional and M-mode echocardiogram with Doppler and color Doppler. Other Information Quality : GoodRhythm : INDICATION CVA/TIA Dizziness and Vertigo 2D DIMENSIONS IVSd0.8 (0.7-1.1cm)LVDd4.8 (3.9-5.9cm) PWd0.9 (0.7-1.1cm)LVDs3.2 (2.5-4.0cm) FS (%) 33.0 %LVEF (%)61.5 (>50%) M-Mode DIMENSIONS Left Atrium (MM)3.79 (2.5-4.0cm)Aortic Root3.75 (2.2-3.7cm) Aortic Cusp Exc.2.40 (1.5-2.0cm) Mitral Valve MV E Ljvrbbki04.4cm/sMV A Fgesghjv90.4cm/sE/A ratio1.0 TDI E/Lateral E'0.0E/Medial E'0.0 Tricuspid Valve TR Peak [id number]/sTR Peak Gr.[id number] LEFT VENTRICLE The left ventricle is normal size. There is normal left ventricular wall thickness. Left ventricle systolic function is normal with Ejection Fraction of 60-65%. There is normal LV segmental wall motion. The left ventricular diastolic function is normal. No left ventricle thrombus noted on this study. RIGHT VENTRICLE The right ventricle is normal size. The right ventricular systolic function is normal. ATRIA The left atrium size is normal. The right atrium size is normal. AORTIC VALVE The aortic valve is mildly sclerotic. The aortic valve is trileaflet. No aortic regurgitation is present. There is no aortic valvular stenosis. There is no aortic valvular vegetation. MITRAL VALVE Mitral annular calcification is mild. There is no evidence of mitral valve prolapse. There is no mitral valve stenosis. Mitral regurgitation is mild. TRICUSPID VALVE The tricuspid valve is normal in structure. There is trace to mild tricuspid regurgitation. Right ventricular systolic pressure is estimated at less than 30 mmHg. There is no pulmonary hypertension. There is no tricuspid valve prolapse or vegetation. There is no tricuspid valve stenosis. PULMONIC VALVE The pulmonic valve is not well visualized. There is no pulmonic valvular regurgitation. GREAT VESSELS The aortic root is normal in size. The IVC is normal in size and collapses >50% with inspiration. PERICARDIAL EFFUSION There is no pericardial effusion. There is no pleural effusion. <Conclusion> The left ventricle is normal size. Left ventricle systolic function is normal with Ejection Fraction of 60-65%. The left ventricular diastolic function is normal. The right ventricle is normal size. The right ventricular systolic function is normal. The left atrium size is normal. The right atrium size is normal. Mitral regurgitation is mild. There is trace to mild tricuspid regurgitation. There is no pulmonary hypertension.
--- NOTE | 2017-04-13 00:39 | EEG ---
DATE OF STUDY: 04/10/2017 This is a 16-channel electroencephalogram of awake and drowsy adult. During the study, photic stimulation was performed. Hyperventilation was not performed. The resting electroencephalogram showed a diffuse moderate voltage of 3 to 4 Hz delta activities seen at frontal and there are seen bilateral cortical leads. This slow activity is continuously noted from the beginning without any change in frequency. Some movement artifact contaminated the background rhythm. During the photic stimulation, this activity is somewhat increased from low theta activities. IMPRESSION: This is an abnormal electroencephalogram because of persistent slowing throughout the record suggestive of bilateral cerebral dysfunction. This is probably secondary to metabolic, vascular or degenerative . Please correlate the findings with the neurological and radiological studies. Geovani Joyce MD
== END 2017-04-11 14:51 | disposition home or self-care (01) ==
LOC: C.ER 12:11 → C.9E 14:06 → C.6T 17:11
PROVIDERS: ADMIT Internal Medicine Nephrology; ATTEND Internal Medicine Nephrology
DX: R42 Dizziness and giddiness (principal); R47.81 Slurred speech; E87.6 Hypokalemia; E78.5 Hyperlipidemia, unspecified; F17.210 Nicotine dependence, cigarettes, uncomplicated; F17.290 Nicotine dependence, other tobacco product, uncomplicated; F41.9 Anxiety disorder, unspecified; J45.909 Unspecified asthma, uncomplicated
CPT/HCPCS: 36415; 70450; 70551; 71010; 80053; 80061; 82607; 82948; 83036; 84146; 84443; 84484; 85025; 85610; 85730; 86850; 86900; 93306; 93880; 95812; 96372; 97161; 97530; 99285; G0378; G0480; G8978; G8979; G8980; J1650; J7042